=== PATIENT | female | born 1980 | race American Indian/Alaskan Native ===

== ENCOUNTER 2019-01-25 20:03 | Emergency (ER) | payer MEDICAID ==
[2019-01-25 20:34] LABS: Hematocrit 40.1 % (30.3-42.9); Hemoglobin 13.4 gm/dl (10.1-14.3); Mean Corpuscular HGB Conc 33 % (30-34); Mean Corpuscular Volume 88 fl (79-97); Platelet Count 417 K/mm3 (140-440); Red Blood Count 4.57 M/mm3 (3.65-5.03); Red Cell Distribution Width 14.3 % (13.2-15.2)
[2019-01-25 20:45] VITALS: BP 111/62
[2019-01-25 21:24] LABS: Basophils % (Manual) 0 % (0.0-1.8); Eosinophils % (Manual) 0 % (0.0-4.3); Total Cells Counted 100
[2019-01-25 21:26] LABS: Anisocytosis Few; Target Cells 1+
--- NOTE | 2019-01-25 22:49 | Ultrasound Report ---
PROCEDURE: US OB <= 14 WEEKS FETUS TECHNIQUE: Real-time transabdominal sonography of the uterus, placenta, amniotic fluid, adnexa, and fetus was performed with image documentation. Measurements were obtained to determine age/size. M-mode Doppler was used to document heartbeat. ADDITIONAL GESTATION: None. HISTORY: Preg spotting COMPARISONS: None . FINDINGS: CRL: 15.5 mm, which corresponds to a gestational age of: 7 weeks, 6 days. Yolk Sac: Appropriate for gestational age. . Embryonic Cardiac Activity: There is no cardiac activity. . Gestational Sac: Size and shape are appropriate for gestational age Placenta: Normal Amniotic fluid: Appropriate for gestational age. Cervix: Normal. Right Ovary: There is a 1.7 cm cyst. . Left Ovary: There is a 1.9 cm cyst. . Estimated delivery date: 09/07/2019 . Uterus and adnexa: Normal. IMPRESSION: There is an intrauterine gestation measuring 7 weeks and 6 days. No cardiac activity is identified wh ich is suspicious for demise. Correlation with beta hCG levels may be helpful. This document is electronically signed by Flako Cao MD., January 25 2019 10:47:14 PM ET
[2019-01-25] MEDS ORDERED: TYLENOL PO ONE (23:11)
[2019-01-25] MEDS ORDERED: TYLENOL ONE (23:15)
== END 2019-01-26 00:17 | disposition left against medical advice (07) ==
LOC: ED 20:03
DX: O20.8 Other hemorrhage in early pregnancy (principal); Z53.21 Procedure and treatment not carried out due to patient leaving prior to being seen by health care provider
CPT/HCPCS: 36415; 76801; 84702; 85007; 85025; 86850; 86900; 86901